=== PATIENT | female | born 1970 | race Caucasian/White ===

== ENCOUNTER 2018-11-20 18:37 | Observation (INO) ==
[2018-11-20] MEDS ORDERED: Isovue-370 500 ML BOTTLE IVP ONE (19:00)
[2018-11-20] MEDS ORDERED: 0.9 % Sodium Chloride 1,000 ML IVC ONE (19:05)
[2018-11-20 19:14] LABS: Bilirubin,Urine Negative (Negative); Blood,Urine Negative (Negative); Clarity,Urine Clear (Clear); Color,Urine Yellow (Yellow); Glucose,Urine (UA) Normal (Normal); Ketones,Urine Negative (Negative); Leukocyte Esterase,Urine Negative (Negative); Nitrite,Urine Negative (Negative); Protein,Urine Negative (Neg-Trace); Specific Gravity,Urine 1.015 (1.010-1.025); Urobilinogen,Urine Normal (Normal)
[2018-11-20 19:36] LABS: Basophils # 0.1 K/mcL (0.0-0.2); Basophils % 0.6 %; Eosinophils # 0.5 K/mcL (0.0-0.6); Eosinophils % 4.5 %; Hemoglobin 12.3 g/dL (11.5-15.4); Immature Granulocytes % 0.6 % (0-4); Lymphocytes # 2.6 K/mcL (0.6-4.6); Lymphocytes % 24.9 %; Mean Corpuscular HGB Conc 32.4 g/dL (31.6-35.5); Mean Corpuscular Hemoglobin 28.6 pg (28.0-33.3); Mean Corpuscular Volume 88.4 fL (83.0-100.0); Mean Platelet Volume 9.9 fL (9.4-12.4); Monocytes # 1.7 K/mcL (0.0-1.3); Monocytes % 16.1 %; Neutrophils # 5.5 K/mcL (1.6-8.9); Platelet Count 402 K/mcL (140-400); Segmented Neutrophils % 53.3 %
[2018-11-20 19:47] LABS: Prothrombin Time 11.8 Seconds (9.4-12.1)
[2018-11-20 19:51] LABS: Alanine Aminotransferase 33 Units/L (7-52); Albumin 3.8 g/dL (3.5-5.7); Albumin/Globulin Ratio 1.2 (1.1-2.2); Alkaline Phosphatase 86 Units/L (34-104); Aspartate Amino Transferase 23 Units/L (13-39); BUN/Creatinine Ratio 12 (6-26); Bilirubin,Indirect 0.4 mg/dL (0.0-1.2); Bilirubin,Total 0.4 mg/dL (0.3-1.0); Blood Urea Nitrogen 11 mg/dL (6-20); Calcium 9.8 mg/dL (8.6-10.3); Carbon Dioxide 25 mEq/L (23-29); Chloride 101 mEq/L (98-107); Globulin 3.1 g/dL (2.4-3.5); Glucose 121 mg/dL (70-105); Osmolality,Calculated 279 (280-300); Potassium 3.5 mEq/L (3.5-5.1); Sodium 134 mEq/L (136-145); Total Protein 6.9 g/dL (6.4-8.9); eGFR For Non-African Americans > 60 (> 60)
--- NOTE | 2018-11-20 20:16 | Emergency Department Note ---
Disposition Clinical Impression: Lower GI bleed, Colitis Disposition: Admitted As Inpatient General Adult HPI - General Chief complaint: ED GI Bleed Stated complaint: Bloody Stool/Diarrhea x 2 weeks Time Seen by Provider: 11/20/18 18:44 Source: patient, family Mode of arrival: private vehicle Limitations: no limitations Nursing Notes Reviewed: Yes Vital Signs Reviewed: Yes - History of Present Illness HPI Narrative: 48-year-old female presents for chief complaint of abdominal pain which is crampy and diffuse and constant with associated watery diarrhea for the last 2 weeks. This is in the context of taking levofloxacin for a sinus infection about a month ago. No travel. No sick contacts. No history of similar symptoms. She denies any fevers, headache or confusion, chest pain shortness of breath. She has nausea and poor appetite without vomiting. No changes in urination. No rashes or edema. Patient notes that over the last week she has noticed blood mixed in with her stool and called her doctor today for the same who recommended she come in for evaluation. She denies any syncope or presyncope, chest pain or shortness of breath. No remitting or exacerbating factors. Pain Scale: 6 - Related Data Home Medications Medication Instructions Recorded Confirmed Citalopram [CeleXA] 40 mg PO DAILY 07/28/16 07/28/16 Lansoprazole [Prevacid] 15 mg PO 07/28/16 Levonorgestrel-Ethin Estradiol 07/28/16 [Lutera-28 Tablet] Nebivolol [Bystolic] 5 mg PO DAILY 07/28/16 07/28/16 Previous Rx's Medication Instructions Recorded GuaiFENesin ER [Mucinex] 600 mg PO BID PRN #9 tab 07/28/16 Phenazopyridine HCl [Pyridium] 200 mg PO TID #6 tab 07/28/16 cephALEXin [Keflex] 500 mg PO QID #40 capsule 07/28/16 Allergies Allergy/AdvReac Type Severity Reaction Status Date / Time No Known Allergies Allergy Unverified 07/28/16 18:22 Constitutional: Denies: fever, chills Eyes: Denies: eye discharge, vision change ENT ED: Denies: epistaxis, dysphagia Cardiovascular: Denies: chest pain, palpitations Respiratory: Denies: cough, dyspnea Gastrointestinal: Reports: abdominal pain, nausea Genitourinary: Denies: urgency, dysuria Musculoskeletal: Denies: back pain, neck pain Integumentary: Denies: rash, lesions Neurological: Denies: headache, weakness Psychiatric: Reports: as per HPI Endocrine: Denies: fatigue, heat or cold intolerance Hematological/Lymphatic: Denies: easy bleeding, easy bruising Past Medical History - Past Medical History Medical history: Reports: GERD, hyperlipidemia, hypertension Psychiatric history: Reports: anxiety, depression - Social History Smoking Status: Never smoker Smokeless Tobacco Status: No Alcohol use: Reports: occasionally Drug use: Reports: none Physical Exam - General Limitations: no limitations General appearance: alert, in no apparent distress - Head Head exam: atraumatic, normocephalic - Eye Eye exam: Present: normal appearance, PERRL - ENT ENT exam: normal exam, normal oropharynx - Neck Neck exam: Present: normal inspection, full ROM - Chest Chest inspection: Present: normal inspection, symmetric chest wall rise - Respiratory Respiratory exam: Present: normal lung sounds bilaterally. 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 ) - Extremities Exam Extremities exam: Present: normal inspection, full ROM. Absent: pedal edema - Back Exam Back exam: Present: normal inspection, full ROM - Neurological Exam Neurological exam: Present: alert, oriented X3 - Psychiatric Psychiatric exam: Present: normal affect, normal mood - Skin Skin exam: Present: warm, dry, intact Course Course Narrative: Patient with watery, blood-tinged diarrhea in the emergency department. CT scan was notable for pancolitis. Patient without anemia in the emergency department. I gave her Flagyl in the emergency department. Concern for C. difficile is high so hospitalist requested that I add vancomycin oral. Patient admitted for further evaluation and management. Vital Signs Temperature 98.1 F 11/20/18 18:38 Pulse Rate 98 11/20/18 18:38 Respiratory Rate 18 11/20/18 18:38 Blood Pressure 144/90 11/20/18 18:38 O2 Sat by Pulse Oximetry 96 11/20/18 18:38 Temperature 98.1 F 11/20/18 18:38 Pulse Rate 99 11/20/18 21:46 Respiratory Rate 16 11/20/18 21:46 Blood Pressure 116/73 11/20/18 21:46 O2 Sat by Pulse Oximetry 99 11/20/18 21:46 Oxygen Delivery Oxygen Delivery Room Air Medical Decision Making - Lab Data Result diagrams: 11/20/18 19:13 11/20/18 19:13 Lab Results 11/20/18 11/20/18 11/20/18 Range/Units 19:02 19:13 19:13 WBC 10.3 (4.3-11.1) K/mcL RBC 4.30 (3.82-4.97) M/mcL Hgb 12.3 (11.5-15.4) g/dL Hct 38.0 (35.3-44.9) % MCV 88.4 (83.0-100.0) fL MCH 28.6 (28.0-33.3) pg MCHC 32.4 (31.6-35.5) g/dL RDW 12.0 (11.5-14.5) % Plt Count 402 H (140-400) K/mcL MPV 9.9 (9.4-12.4) fL Immature Gran % 0.6 (0-4) % Seg Neutrophils % 53.3 % Lymphocytes % 24.9 % Monocytes % 16.1 % Eosinophils % 4.5 % Basophils % 0.6 % Neutrophils # 5.5 (1.6-8.9) K/mcL Lymphocytes # 2.6 (0.6-4.6) K/mcL Monocytes # 1.7 H (0.0-1.3) K/mcL Eosinophils # 0.5 (0.0-0.6) K/mcL Basophils # 0.1 (0.0-0.2) K/mcL PT 11.8 (9.4-12.1) Seconds INR 1.0 Sodium (136-145) mEq/L Potassium (3.5-5.1) mEq/L Chloride (98-107) mEq/L Carbon Dioxide (23-29) mEq/L BUN (6-20) mg/dL Creatinine (0.60-1.20) mg/dL Est GFR ( Amer) (> 60) Est GFR (Non-Af Amer) (> 60) BUN/Creatinine Ratio (6-26) Glucose (70-105) mg/dL Calculated Osmolality (280-300) Calcium (8.6-10.3) mg/dL Total Bilirubin (0.3-1.0) mg/dL Direct Bilirubin (0.0-0.2) mg/dL Indirect Bilirubin (0.0-1.2) mg/dL AST (13-39) Units/L ALT (7-52) Units/L Alkaline Phosphatase (34-104) Units/L Serum Total Protein (6.4-8.9) g/dL Albumin (3.5-5.7) g/dL Globulin (2.4-3.5) g/dL Albumin/Globulin Ratio (1.1-2.2) Urine Color Yellow (Yellow) Urine Clarity Clear (Clear) Urine pH 6.0 (5.0-8.0) pH Units Ur Specific [place] 1.015 (1.010-1.025) Urine Protein Negative (Neg-Trace) mg/dL Urine Glucose (UA) Normal (Normal) mg/dL Urine Ketones Negative (Negative) mg/dL Urine Blood Negative (Negative) Urine Nitrite Negative (Negative) Urine Bilirubin Negative (Negative) Urine Urobilinogen Normal (Normal) mg/dL Ur Leukocyte Esterase Negative (Negative) Ur Culture Indicated? NO (NO) Stl C. diff Tox B Gene (Negative) 11/20/18 11/20/18 Range/Units 19:13 20:29 WBC (4.3-11.1) K/mcL RBC (3.82-4.97) M/mcL Hgb (11.5-15.4) g/dL Hct (35.3-44.9) % MCV (83.0-100.0) fL MCH (28.0-33.3) pg MCHC (31.6-35.5) g/dL RDW (11.5-14.5) % Plt Count (140-400) K/mcL MPV (9.4-12.4) fL Immature Gran % (0-4) % Seg Neutrophils % % Lymphocytes % % Monocytes % % Eosinophils % % Basophils % % Neutrophils # (1.6-8.9) K/mcL Lymphocytes # (0.6-4.6) K/mcL Monocytes # (0.0-1.3) K/mcL Eosinophils # (0.0-0.6) K/mcL Basophils # (0.0-0.2) K/mcL PT (9.4-12.1) Seconds INR Sodium 134 L (136-145) mEq/L Potassium 3.5 (3.5-5.1) mEq/L Chloride 101 (98-107) mEq/L Carbon Dioxide 25 (23-29) mEq/L BUN 11 (6-20) mg/dL Creatinine 0.89 (0.60-1.20) mg/dL Est GFR ( Amer) > 60 (> 60) Est GFR (Non-Af Amer) > 60 (> 60) BUN/Creatinine Ratio 12 (6-26) Glucose 121 H (70-105) mg/dL Calculated Osmolality 279 L (280-300) Calcium 9.8 (8.6-10.3) mg/dL Total Bilirubin 0.4 (0.3-1.0) mg/dL Direct Bilirubin 0.0 (0.0-0.2) mg/dL Indirect Bilirubin 0.4 (0.0-1.2) mg/dL AST 23 (13-39) Units/L ALT 33 (7-52) Units/L Alkaline Phosphatase 86 (34-104) Units/L Serum Total Protein 6.9 (6.4-8.9) g/dL Albumin 3.8 (3.5-5.7) g/dL Globulin 3.1 (2.4-3.5) g/dL Albumin/Globulin Ratio 1.2 (1.1-2.2) Urine Color (Yellow) Urine Clarity (Clear) Urine pH (5.0-8.0) pH Units Ur Specific [place] (1.010-1.025) Urine Protein (Neg-Trace) mg/dL Urine Glucose (UA) (Normal) mg/dL Urine Ketones (Negative) mg/dL Urine Blood (Negative) Urine Nitrite (Negative) Urine Bilirubin (Negative) Urine Urobilinogen (Normal) mg/dL Ur Leukocyte Esterase (Negative) Ur Culture Indicated? (NO) Stl C. diff Tox B Gene Negative (Negative)
[2018-11-20] MEDS ORDERED: MetroNIDAZOLE 500 MG/100 ML 500 MG/100 ML BAG IVPB ONE (20:56)
[2018-11-20] MEDS ORDERED: Vancomycin Oral Soln 125 MG/2.5 ML UDC PO SCH (22:00)
[2018-11-20] MEDS ORDERED: Naloxone 0.4 MG/ML INJ IVP PRN (23:12)
--- NOTE | 2018-11-20 23:14 | Internal Med History&Physical ---
<Markel Metzger S - Last Filed: 11/20/18 23:48> Date of Encounter: 11/20/18 Time of Encounter: 23:48 Internal Medicine - H&P: HPI Chief complaint: abdominal pain, bloody diarrhea Admitted From: Emergency Dept Plans for Post Hospital Care: Home History of present illness: Ms. Rivas is a 48 year old female with PMH of HTN, GERD and obesity. She comes to the hospital today with the chief complaint of bloody diarrhea. She has had increasing bloody diarrhea x 2-3 weeks. She also has cramping abdominal pain th at is in the LLQ/RLQ w/o radiation. She has associated nausea, no vomiting. She reports that anytime she eats she has 2-3 bloody BM no matter what she eats. She denies fecal urgency at nighttime. She states that she has had previous episodes of this before and her doctor has given her sulfasalazine in the past. She denies a personal or fam hx of IBD or CRC. She denies any weight loss, new rashes, or skin changes. Does have some fevers/chills. She recently was given levaquin for sinusitis as an outpatient but had abdominal symptoms previous to this medication being given. She denies chest pain, SOB, dysuria, hematuria, or other sources of bleeding. She feels some weakness but denies episodes of presyncope or syncope. Nothing has made her s/s better or worse, other than food. She does use NSAIDs multiple times per day. In the ER she was found to have an elevated platelet count. CT scan showed pancolitis, possible rectal mass and pathologic pericecal lymphadenopathy. She will be admitted for further evaluation and workup. GI consult has been placed. Past Med Surg Social Fam HX - Past Medical History Medical history: GERD, hyperlipidemia, hypertension Additional medical history: GI Bleed Psychiatric history: anxiety, depression - Past Surgical History Additional surgical history: Exploratory Abdomen - Social History Smoking Status: Never smoker Smokeless Tobacco Status: No Alcohol use: occasionally Drug use: none Internal Medicine - H&P: Meds Citalopram [CeleXA] 40 mg PO DAILY 07/28/16 [History] Lansoprazole [Prevacid] 30 mg PO HS 07/28/16 [History] Bisoprolol/HCTZ 04/15.25 1 mg PO DAILY 11/21/18 [History] Fenofibrate Nanocrystallized [Fenofibrate] 160 mg PO HS 11/21/18 [History] L.acid/L.casei/B.bif/B.andres/Fos [Probiotic Blend Capsule] 1 each PO DAILY 11/21/18 [History] Levonorgestrel-Ethin Estradiol [Vienva-28 Tablet] 1 each PO HS 11/21/18 [History] Loratadine [Allergy Relief] 10 mg PO HS 11/21/18 [History] Vistaril 25 mg PO Q8HR PRN 11/21/18 [History] Allergy/AdvReac Type Severity Reaction Status Date / Time No Known Allergies Allergy Unverified 07/28/16 18:22 All Systems PM: A 10-system review of systems was performed and is negative for pertinent findings except as documented above in the HPI. - Constitutional Constitutional: chills, fever(s), weakness, no anorexia, no weight loss - EENT Eyes: no blurry vision, no change in vision Ears: no tinnitus Nose, mouth and throat: no dysphagia - Cardiovascular Cardiovascular ROS IM: no chest pain, no dyspnea, no dyspnea on exertion, no palpitations - Respiratory Respiratory: no cough, no dyspnea, no dyspnea on exertion, no excessive phlegm production, no change in phlegm color - Gastrointestinal Gastrointestinal: abdominal pain, diarrhea, hematochezia, loose stools, nausea, no dysphagia, no hematemesis, no vomiting - Musculoskeletal Musculoskeletal ROS IM: no arthralgias, no back pain - Integumentary Integumentary IM: no rash, no skin ulcer - Neurological Neurological ROS: weakness, no numbness, no tingling - Psychiatric Psychiatric: anxiety, depression - Endocrine Endocrine IM: fatigue - Hematologic/Lymphatic Hematologic/Lymphatic: no easy bleeding, no easy bruising - Constitutional Vitals: Temp Pulse Resp BP Pulse Ox 98.1 F 99 16 116/73 99 11/20/18 18:38 11/20/18 21:46 11/20/18 21:46 11/20/18 21:46 11/20/18 21:46 General appearance: Present: cooperative, A&O X 3, morbidly obese, pleasant Exam: General - AOx3, NAD, cooperative, obese female HEENT - MMM, NCAT, no scleral icterus Neck - no LAD palpated, supple, trachea midline Cardio - tacycardia, s1s2, cta, no mrg lungs - CTAB, not in respiratory distress, no wheeze/rhonchi/rales abd - TTP in LLQ/RLQ, no rebound, no involuntary or voluntary guarding, no peritoneal signs back - no bruising, no tenderness bilaterally skin - warm, dry, intact, tattoo of the right shoulder psych - normal affect/mood neuro - sensation intact, strength intact, no FND Internal Med - H&P Results - Labs CBC & Chem 7: 11/20/18 19:13 11/20/18 19:13 Labs: Short CBC 11/20/18 Range/Units 19:13 WBC 10.3 (4.3-11.1) K/mcL Hgb 12.3 (11.5-15.4) g/dL Hct 38.0 (35.3-44.9) % Plt Count 402 H (140-400) K/mcL Neutrophils # 5.5 (1.6-8.9) K/mcL BMP 11/20/18 19:13 Sodium 134 L Potassium 3.5 Chloride 101 Carbon Dioxide 25 BUN 11 Creatinine 0.89 Glucose 121 H Calcium 9.8 Liver Function 11/20/18 Range/Units 19:13 Total Bilirubin 0.4 (0.3-1.0) mg/dL Direct Bilirubin 0.0 (0.0-0.2) mg/dL AST 23 (13-39) Units/L ALT 33 (7-52) Units/L Alkaline Phosphatase 86 (34-104) Units/L Albumin 3.8 (3.5-5.7) g/dL Urine 11/20/18 Range/Units 19:02 Urine Color Yellow (Yellow) Urine Clarity Clear (Clear) Urine pH 6.0 (5.0-8.0) pH Units Ur Specific [place] 1.015 (1.010-1.025) Urine Protein Negative (Neg-Trace) mg/dL Urine Glucose (UA) Normal (Normal) mg/dL - Impressions ITS Impressions Abdomen/Pelvis CT 11/20/18 18:59 IMPRESSION: Acute nonspecific pancolitis. Possible rectal mass. Pathologic pericecal lymphadenopathy. Differential considerations include infectious, inflammatory, and neoplastic etiologies. GI consult and colonoscopy recommended. D/ / Khalif Walker MD / Khalif Walker MD Interpreting Provider: Khalif Walker MD - Assessment and Plan (1) Colitis Current Visit: Yes Status: Acute Assessment and plan: Pt presents with a 2 week hx of increasing abdominal pain, cramping, and bloody diarrhea - reports 2-3 BM mixed with blood after every meal - denies personal hx of cancer, fam hx of CRC - denies weight loss - has had ~3 prior episodes reportedly put on sulfasalazine by PCP during last episode denies personal/family hx of IBD Denies contact w sick persons/travel outside [place] Was recently on levaquin, however, denies other recent abx use Bloody diarrhea assoc with mealtimes Does report using NSAIDS very frequently C dif stool (-) CT scan abd from admission: Acute nonspecific pancolitis. Possible rectal mass. Pathologic pericecal lymphadenopathy. Differential considerations include infectious, inflammatory, and neoplastic etiologies Plan: - consult to GI will likely need inpt colonoscopy ?rectal mass - ESR/CRP pending - cipro/flagyl day 1 (timed to start at midnight) - GI stool panel pending - avoid NSAIDs - zofran prn nausea - 100cc/hr 0.9% NS - monitor CBC/BMP with AM labs - FEN: NPO - DVT prophylaxis: sq heparin - consults: GI - dispo: inpatient GI workup, r/o underlying malignancy (2) Rectal mass Current Visit: Yes Status: Acute Assessment and plan: Possible rectal mass with pathologic pericecal LAD seen on CT on admission GI consulted. See plan as above. (3) Abdominal pain Current Visit: Yes Status: Acute Assessment and plan: Secondary to colitis. See plan above. Qualifiers: Abdominal location: generalized Qualified Code(s): R10.84 - Generalized abdominal pain (4) Nausea Current Visit: Yes Status: Acute Assessment and plan: zofran prn (5) Hypertension Current Visit: No Status: Chronic Assessment and plan: Continue home med once reconciled. Chronic. On nebivolol. Qualifiers: Hypertension type: essential hypertension Qualified Code(s): I10 - Essential (primary) hypertension (6) Obesity Current Visit: No Status: Chronic Assessment and plan: BMI 45.5, chronic. Qualifiers: Obesity type: due to excess calories Obesity classification: adult class 3 (BMI >= 40) Serious obesity comorbidity presence: without serious comorbidity Body mass index: BMI 45.0-49.9 Qualified Code(s): E66.01 - Morbid (severe) obesity due to excess calories; Z68.42 - Body mass index (BMI) 45.0-49.9, adult (7) DVT prophylaxis Current Visit: Yes Status: Acute Assessment and plan: sq heparin (8) GERD (gastroesophageal reflux disease) Current Visit: No Status: Chronic Assessment and plan: on prevacid. chronic. Qualifiers: Esophagitis presence: esophagitis presence not specified Qualified Code(s): K21.9 - Gastro-esophageal reflux disease without esophagitis (9) Anxiety Current Visit: No Status: Chronic Assessment and plan: continue celexa. chronic. (10) Seasonal allergies Current Visit: No Status: Chronic Assessment and plan: chronic, continue mucinex. (11) Thrombocythemia Current Visit: Yes Status: Acute Assessment and plan: Likely reactive, platelets 402 on admission, continue to monitor. - Time Spent With Patient Total time spent is greater than 50% in coordination of care (as documented) at patient's floor/unit and/or counseling patient: less than 15 minutes <Mu Lindsey - Last Filed: 11/21/18 07:30> Date of Encounter: 11/20/18 Internal Medicine - H&P: HPI History of present illness: Ms. Rivas is a 48 year old female Past Med Surg Social Fam HX - Family History Brother Living Status: Still Living Hx Family Cancer: Yes (CLL, stem cell transplant) Father Living Status: Still Living Hx Family Cancer: Yes (myeloma) Hx Family Endocrine Disorder: Yes (diabetic) All Systems PM: A 10-system review of systems was performed and is negative for pertinent findings except as documented above in the HPI. - Constitutional Vitals: Temp Pulse Resp BP Pulse Ox 98.2 F 95 18 133/79 95 11/21/18 06:53 11/21/18 06:53 11/21/18 06:53 11/21/18 06:53 11/21/18 06:53 Internal Med - H&P Results - Labs CBC & Chem 7: 11/21/18 05:10 11/21/18 05:10 Labs: Short CBC 11/20/18 11/21/18 Range/Units 19:13 05:10 WBC 10.3 10.5 (4.3-11.1) K/mcL Hgb 12.3 11.6 (11.5-15.4) g/dL Hct 38.0 35.5 (35.3-44.9) % Plt Count 402 H 354 (140-400) K/mcL Neutrophils # 5.5 (1.6-8.9) K/mcL BMP 11/20/18 11/21/18 19:13 05:10 Sodium 134 L 136 Potassium 3.5 3.8 Chloride 101 105 Carbon Dioxide 25 22 L BUN 11 8 Creatinine 0.89 0.70 Glucose 121 H 124 H Calcium 9.8 9.2 Liver Function 11/20/18 Range/Units 19:13 Total Bilirubin 0.4 (0.3-1.0) mg/dL Direct Bilirubin 0.0 (0.0-0.2) mg/dL AST 23 (13-39) Units/L ALT 33 (7-52) Units/L Alkaline Phosphatase 86 (34-104) Units/L Albumin 3.8 (3.5-5.7) g/dL Urine 11/20/18 Range/Units 19:02 Urine Color Yellow (Yellow) Urine Clarity Clear (Clear) Urine pH 6.0 (5.0-8.0) pH Units Ur Specific [place] 1.015 (1.010-1.025) Urine Protein Negative (Neg-Trace) mg/dL Urine Glucose (UA) Normal (Normal) mg/dL - Impressions ITS Impressions Abdomen/Pelvis CT 11/20/18 18:59 IMPRESSION: Acute nonspecific pancolitis. Possible rectal mass. Pathologic pericecal lymphadenopathy. Differential considerations include infectious, inflammatory, and neoplastic etiologies. GI consult and colonoscopy recommended. D/ / Khalif Walker MD / Khalif Walker MD Interpreting Provider: Khalif Walker MD - Assessment and Plan (1) Colitis Current Visit: Yes Status: Acute (2) Rectal mass Current Visit: Yes Status: Acute (3) Abdominal pain Current Visit: Yes Status: Acute Qualifiers: Abdominal location: generalized Qualified Code(s): R10.84 - Generalized abdominal pain (4) Nausea Current Visit: Yes Status: Acute (5) Hypertension Current Visit: No Status: Chronic Qualifiers: Hypertension type: essential hypertension Qualified Code(s): I10 - Essential (primary) hypertension (6) Obesity Current Visit: No Status: Chronic Qualifiers: Obesity type: due to excess calories Obesity classification: adult class 3 (BMI >= 40) Serious obesity comorbidity presence: without serious comorbidity Body mass index: BMI 45.0-49.9 Qualified Code(s): E66.01 - Morbid (severe) obesity due to excess calories; Z68.42 - Body mass index (BMI) 45.0-49.9, adult (7) DVT prophylaxis Current Visit: Yes Status: Acute (8) GERD (gastroesophageal reflux disease) Current Visit: No Status: Chronic Qualifiers: Esophagitis presence: esophagitis presence not specified Qualified Code(s): K21.9 - Gastro-esophageal reflux disease without esophagitis (9) Anxiety Current Visit: No Status: Chronic (10) Seasonal allergies Current Visit: No Status: Chronic (11) Thrombocythemia Current Visit: Yes Status: Acute - Time Spent With Patient Total time spent is greater than 50% in coordination of care (as documented) at patient's floor/unit and/or counseling patient: - Attending Attestation On the history and physical examination of the patient and discussed her management with the resident. I reviewed the resident's note and agree with the documented plan of care. In short patient is a 48-year-old female with a past medical history of hypertension and GERD who presents with 2-3 weeks of intermittent bloody diarrhea associated with abdominal pain and cramping after meals. Patient reports previously being on sulfasalazine by her GI doctor but was never formally diagnosed with any inflammatory bowel disease. Patient otherwise hemodynamically stable. Hemoglobin stable. We will admit for inflammatory bowel disease workup. GI consult.
[2018-11-20] MEDS ORDERED: *HR* Heparin 5,000 UNIT/ML VIAL SQ SCH (23:15)
[2018-11-21] LABS: C-Reactive Protein 120 mg/L (Less than 10); Magnesium 1.7 mg/dL (1.6-2.6)
[2018-11-21] MEDS ORDERED: Ondansetron 4 MG/2 ML VIAL IVP PRN (00:05)
[2018-11-21] MEDS: MetroNIDAZOLE 500 MG/100 ML 500 MG/100 ML BAG IVPB SCH ×3 (00:39→16:13)
[2018-11-21] MEDS: 0.9 % Sodium Chloride 1,000 ML IVC SCH ×2 (00:47→16:16)
[2018-11-21] MEDS ORDERED: hydrOXYzine pamoate 25 MG CAPSULE PO PRN (01:19)
[2018-11-21 04:58] LABS: Adenovirus F 40/41 PCR Not detected (Not detect); Astrovirus PCR Not detected (Not detect); C.difficile Toxin A/B Gene PCR Not detected (Not detect); Campylobacter by PCR Not detected (Not detect); Cryptosporidium by PCR Not detected (Not detect); Cyclospora cayetanensis PCR Not detected (Not detect); E. coli O157 by PCR Not detected (Not detect); Entamoeba histolytica PCR Not detected (Not detect); Enteroaggregative E.coli(EAEC) Not detected (Not detect); Enteropathogenic E.coli(EPEC) Not detected (Not detect); Enterotoxigenic E.coli (ETEC) Not detected (Not detect); Giardia lamblia PCR Not detected (Not detect); Norovirus GI/GII PCR Not detected (Not detect); Plesiomonas shigelloides PCR Not detected (Not detect); Rotavirus A PCR Not detected (Not detect); Salmonella PCR Not detected (Not detect); Sapovirus PCR Not detected (Not detect); Shig/EnteroinvasiveE coli EIEC Not detected (Not detect); Shigalike tox-prod E coli STEC Not detected (Not detect); Vibrio PCR Not detected (Not detect); Vibrio cholerae PCR Not detected (Not detect); Yersinia enterocolitica PCR Not detected (Not detect)
[2018-11-21 05:24] LABS: Hematocrit 35.5 % (35.3-44.9); Hemoglobin 11.6 g/dL (11.5-15.4); Mean Corpuscular HGB Conc 32.7 g/dL (31.6-35.5); Mean Corpuscular Hemoglobin 28.6 pg (28.0-33.3); Mean Corpuscular Volume 87.7 fL (83.0-100.0); Mean Platelet Volume 9.7 fL (9.4-12.4); Platelet Count 354 K/mcL (140-400); Red Blood Count 4.05 M/mcL (3.82-4.97); Red Cell Distribution Width 11.9 % (11.5-14.5)
[2018-11-21 05:44] LABS: BUN/Creatinine Ratio 11 (6-26); Blood Urea Nitrogen 8 mg/dL (6-20); Calcium 9.2 mg/dL (8.6-10.3); Carbon Dioxide 22 mEq/L (23-29); Chloride 105 mEq/L (98-107); Glucose 124 mg/dL (70-105); Osmolality,Calculated 282 (280-300); Potassium 3.8 mEq/L (3.5-5.1); Sodium 136 mEq/L (136-145); eGFR For Non-African Americans > 60 (> 60)
[2018-11-21] MEDS ORDERED: HYDROCHLOROTHIAZIDE PO SCH (09:00)
[2018-11-21] MEDS ORDERED: BISOPROLOL PO SCH (09:00)
--- NOTE | 2018-11-21 12:26 | Gastroenterology Consult Note ---
<Cristobal Johnson Melissa - Last Filed: 11/21/18 12:23> Date of Encounter: 11/21/18 Time of Encounter: 10:00 - Assessment and plan (1) Colitis Current Visit: Yes Status: Acute Assessment and plan: CT A/P shows nonspecific pancolitis, possible rectal mass, pathologic pericecal lymphadenopathy. GI panel stool testing negative. Continue Cipro and Flagyl. Plan for colonoscopy tomorrow. Clear liquid diet today, no red or purple. NPO at midnight. If unable tolerate NuLytely please use MiraLAX prep. If not clear by 6 AM, give 2 tap water enemas. (2) Rectal mass Current Visit: Yes Status: Acute Assessment and plan: CT A/P shows nonspecific pancolitis, possible rectal mass, pathologic pericecal lymphadenopathy. Plan for colonoscopy tomorrow. Clear liquid diet today, no red or purple. NPO at midnight. If unable tolerate NuLytely please use MiraLAX prep. If not clear by 6 AM, give 2 tap water enemas. (3) Lower GI bleed Current Visit: Yes Status: Acute Assessment and plan: Likely secondary to colitis. Plan for colonoscopy tomorrow. Clear liquid diet today, no red or purple. NPO at midnight. If unable tolerate NuLytely please use MiraLAX prep. If not clear by 6 AM, give 2 tap water enemas. (4) Abdominal pain Current Visit: Yes Status: Acute Assessment and plan: Secondary to colitis. Qualifiers: Abdominal location: generalized Qualified Code(s): R10.84 - Generalized abdominal pain - Time Spent With Patient Total time spent is greater than 50% in coordination of care (as documented) at patient's floor/unit and/or counseling patient: GI History of Present Illness - Data of Consult Patient: new to practice Consult date: 11/21/18 Requesting Physician: Mu Lindsey MD - Consult Narrative Reason for consult: Colitis, possible rectal mass History of present illness: Ms. Rivas is a 48 year old female with PMHx of GERD, HLD, HTN who presented to the ED with bloody diarrhea that has been ongoing for the past 2-3 weeks. She reports having symptoms similar to this in the past was treated with sulfasalazine by her PCP. CT A/P shows nonspecific pancolitis, possible rectal mass, pathologic pericecal lymphadenopathy. Hgb 12.3 on admission and today Hgb 11.6. GI panel completed and was negative. She denies any personal or family history of IBD or colon cancer. Procedures: Colonoscopy 11/13/2010 Dr. Ann: Diverticulosis, external and internal hemorrhoids, chronic active colitis suspicious for ulcerative colitis, pathology with crypt abscesses without granulomas. EGD 11/13/2010 Dr. Ann: Gastritis. NSAIDs: None Anticoagulation: None Past Med Surg Social Fam HX - Past Medical History Medical history: GERD, hyperlipidemia, hypertension Additional medical history: GI Bleed Psychiatric history: anxiety, depression - Past Surgical History Surgical History: cholecystectomy Additional surgical history: Exploratory Abdomen - Social History Smoking Status: Former smoker Smokeless Tobacco Status: No Alcohol use: occasionally Drug use: none - Family History Brother Living Status: Still Living Hx Family Cancer: Yes (CLL, stem cell transplant) Father Living Status: Still Living Hx Family Cancer: Yes (myeloma) Hx Family Endocrine Disorder: Yes (diabetic) - Gastrointestinal Gastrointestinal: Present: as per HPI - Constitutional Constitutional: as per HPI - EENT Eyes: as per HPI Ears: Present: as per HPI Nose, mouth and throat: Present: as per HPI - Cardiovascular Cardiovascular ROS: Present: as per HPI - Respiratory Respiratory IM: Present: as per HPI - Genitourinary Genitourinary: Absent: change in color, Urinary frequency - Neurological ROS Neurological GI: Present: as per HPI - Hematologic/Lymphatic Hematologic/Lymphatic pediatric: Present: as per HPI - Musculoskeletal Musculoskeletal ROS GI: Present: as per HPI - Integumentary Integumentary GI: Present: as per HPI - Psychiatric ROS Psychiatric GI: Present: as per HPI - Endocrine Endocrine IM: Present: as per HPI - Constitutional Vitals: Temp Pulse Resp BP Pulse Ox 97.6 F 88 18 117/78 95 11/21/18 10:47 11/21/18 10:47 11/21/18 10:47 11/21/18 10:47 11/21/18 10:47 General appearance: Present: cooperative, A&O X 3, no acute distress, answers questions appropriately - Head Head exam: Present: atraumatic, normocephalic - Eye Eye exam: Present: normal appearance, sclera anicteric - ENT ENT exam: Present: mucous membranes moist - Neck Neck exam general surgery: Present: normal inspection, trachea midline - Respiratory Respiratory exam: Present: CTAB. Absent: rales, rhonchi, wheezes - Cardiovascular Cardiovascular exam: Present: RRR, +S1, +S2 - GI/Abdominal GI/Abdominal exam: Present: normal bowel sounds, soft, tenderness (Mild lower abdominal tenderness), no peritoneal signs. Absent: distended, firm, guarding - Rectal Rectal exam: Present: deferred - Extremities Exam Extremities exam: Present: warm - Neurological Exam Neurological exam: Present: no focal deficits - Psychiatric Psychiatric exam: Present: normal affect, normal mood - Skin Skin exam: Present: dry, intact, normal color, warm Results - Labs CBC & Chem 7: 11/21/18 05:10 11/21/18 05:10 Labs: Last Result 11/21/18 05:10 Calcium 9.2 Entire Visit 11/21/18 05:10 Hgb 11.6 Hct 35.5 - ABG ABG results: PT/INR, D-dimer PT 11.8 Seconds (9.4-12.1) 11/20/18 19:13 - Impressions Impressions Abdomen/Pelvis CT 11/20/18 18:59 IMPRESSION: Acute nonspecific pancolitis. Possible rectal mass. Pathologic pericecal lymphadenopathy. Differential considerations include infectious, inflammatory, and neoplastic etiologies. GI consult and colonoscopy recommended. D/ / Khalif Walker MD / Khalif Walker MD Interpreting Provider: Khalif Walker MD Consult Discharge Plan - Plan Referrals: Farhana Reardon, PODIATRIC AIDE [Primary Care Provider] - <Aron Littlejohn - Last Filed: 11/21/18 14:47> Date of Encounter: 11/21/18 Time of Encounter: 13:00 - Time Spent With Patient Total time spent is greater than 50% in coordination of care (as documented) at patient's floor/unit and/or counseling patient: GI History of Present Illness - Data of Consult Requesting Physician: Mu Lindsey MD - Consult Narrative History of present illness: Ms. Rivas is a 48 year old female - Constitutional Vitals: Temp Pulse Resp BP Pulse Ox 97.6 F 88 18 117/78 95 11/21/18 10:47 11/21/18 10:47 11/21/18 10:47 11/21/18 10:47 11/21/18 10:47 Results - Labs CBC & Chem 7: 11/21/18 05:10 11/21/18 05:10 Labs: Last Result 11/21/18 05:10 Calcium 9.2 Entire Visit 11/21/18 05:10 Hgb 11.6 Hct 35.5 - ABG ABG results: PT/INR, D-dimer PT 11.8 Seconds (9.4-12.1) 11/20/18 19:13 - Impressions Impressions Abdomen/Pelvis CT 11/20/18 18:59 IMPRESSION: Acute nonspecific pancolitis. Possible rectal mass. Pathologic pericecal lymphadenopathy. Differential considerations include infectious, inflammatory, and neoplastic etiologies. GI consult and colonoscopy recommended. D/ / Khalif Walker MD / Khalif Walker MD Interpreting Provider: Khalif Walker MD - Attending Attestation I have personally performed a face to face evaluation on this patient. I have reviewed and agree with the care plan. History and Exam by me shows: patient seen. complaining of rectal and bleeding for 2 weeks. On examination: Abdomen is benign.. Assessment: Patient with rectal bleeding concerning for colitis/rectal mass. Rec: : Colon In the morning
[2018-11-21] MEDS: *HR* Heparin 5,000 UNIT/ML VIAL SQ SCH (12:46)
[2018-11-21] MEDS: Bisoprolol/HCTZ 10/6.25 TABLET PO SCH (12:46)
--- NOTE | 2018-11-21 13:20 | Internal Med Progress Note ---
Hospitalist Progress Note - Encounter Date of Encounter: 11/21/18 Time of Encounter: 09:00 - Subjective Interval History: Patient feels abdominal pain has improved. Still has diarrhea, has improved. Vitals are stable. Patient is in no acute distress. - Exam Vitals: Temp Pulse Resp BP Pulse Ox 97.6 F 88 18 117/78 95 11/21/18 10:47 11/21/18 10:47 11/21/18 10:47 11/21/18 10:47 11/21/18 10:47 Exam: General - AOx3, NAD, cooperative, obese female HEENT - MMM, NCAT, no scleral icterus Neck - no LAD palpated, supple, trachea midline Cardio - tacycardia, s1s2, cta, no mrg lungs - CTAB, not in respiratory distress, no wheeze/rhonchi/rales abd - TTP in LLQ/RLQ, no rebound, no involuntary or voluntary guarding, no peritoneal signs back - no bruising, no tenderness bilaterally skin - warm, dry, intact, tattoo of the right shoulder psych - normal affect/mood neuro - sensation intact, strength intact, no FND - Assessment and Plan (1) Colitis Current Visit: Yes Status: Acute Assessment and Plan: GI consult appreciated. Continue Cipro and Flagyl IV -Clear liquid diet - Plan for colonoscopy tomorrow (2) Rectal mass Current Visit: Yes Status: Acute Assessment and Plan: Possible rectal mass with pathologic pericecal LAD seen on CT on admission GI consulted. Plan for colonoscopy tomorrow (3) Abdominal pain Current Visit: Yes Status: Acute Assessment and Plan: Most likely secondary to colitis. Improved after treatment with Cipro and Flagyl. (4) Nausea Current Visit: Yes Status: Acute Assessment and Plan: Improved. Continue zofran prn (5) Hypertension Current Visit: No Status: Chronic Assessment and Plan: Continue home med once reconciled. Chronic. On nebivolol. (6) Obesity Current Visit: No Status: Chronic Assessment and Plan: BMI 45.5, chronic. Lifestyle modification as outpatient (7) DVT prophylaxis Current Visit: Yes Status: Acute Assessment and Plan: sq heparin (8) GERD (gastroesophageal reflux disease) Current Visit: No Status: Chronic Assessment and Plan: on prevacid. chronic. (9) Anxiety Current Visit: No Status: Chronic Assessment and Plan: continue celexa. chronic. (10) Seasonal allergies Current Visit: No Status: Chronic Assessment and Plan: chronic, continue mucinex. (11) Thrombocythemia Current Visit: Yes Status: Acute Assessment and Plan: Likely reactive, platelets 402 on admission, continue to monitor. - Trend down now - Time Spent with Patient Total time spent is greater than 50% in coordination of care (as documented) at patient's floor/unit and/or counseling patient: 30 minutes 25 - 35 minutes Plan of Care Discussed with: patient Internal Medicine: Result - Labs CBC & Chem 7: 11/21/18 05:10 11/21/18 05:10 Labs: Short CBC 11/20/18 11/21/18 Range/Units 19:13 05:10 WBC 10.3 10.5 (4.3-11.1) K/mcL Hgb 12.3 11.6 (11.5-15.4) g/dL Hct 38.0 35.5 (35.3-44.9) % Plt Count 402 H 354 (140-400) K/mcL Neutrophils # 5.5 (1.6-8.9) K/mcL BMP 11/20/18 11/21/18 19:13 05:10 Sodium 134 L 136 Potassium 3.5 3.8 Chloride 101 105 Carbon Dioxide 25 22 L BUN 11 8 Creatinine 0.89 0.70 Glucose 121 H 124 H Calcium 9.8 9.2 Liver Function 11/20/18 Range/Units 19:13 Total Bilirubin 0.4 (0.3-1.0) mg/dL Direct Bilirubin 0.0 (0.0-0.2) mg/dL AST 23 (13-39) Units/L ALT 33 (7-52) Units/L Alkaline Phosphatase 86 (34-104) Units/L Albumin 3.8 (3.5-5.7) g/dL Urine 11/20/18 Range/Units 19:02 Urine Color Yellow (Yellow) Urine Clarity Clear (Clear) Urine pH 6.0 (5.0-8.0) pH Units Ur Specific [place] 1.015 (1.010-1.025) Urine Protein Negative (Neg-Trace) mg/dL Urine Glucose (UA) Normal (Normal) mg/dL - ABG Interpretation ABG results: PT/INR, D-dimer PT 11.8 Seconds (9.4-12.1) 11/20/18 19:13 - Impressions Impressions Abdomen/Pelvis CT 11/20/18 18:59 IMPRESSION: Acute nonspecific pancolitis. Possible rectal mass. Pathologic pericecal lymphadenopathy. Differential considerations include infectious, inflammatory, and neoplastic etiologies. GI consult and colonoscopy recommended. D/ / Khalif Walker MD / Khalif Walker MD Interpreting Provider: Khalif Walker MD Consult Discharge Plan - Plan Referrals: Farhana Reardon, CLUTCH INSPECTOR [Primary Care Provider] - _ (3) Abdominal pain Qualifiers: Abdominal location: generalized Qualified Code(s): R10.84 - Generalized abdominal pain (5) Hypertension Qualifiers: Hypertension type: essential hypertension Qualified Code(s): I10 - Essential (primary) hypertension (6) Obesity Qualifiers: Obesity type: due to excess calories Obesity classification: adult class 3 (BMI >= 40) Serious obesity comorbidity presence: without serious comorbidity Body mass index: BMI 45.0-49.9 Qualified Code(s): E66.01 - Morbid (severe) obesity due to excess calories; Z68.42 - Body mass index (BMI) 45.0-49.9, adult (8) GERD (gastroesophageal reflux disease) Qualifiers: Esophagitis presence: esophagitis presence not specified Qualified Code(s): K21.9 - Gastro-esophageal reflux disease without esophagitis
[2018-11-21] MEDS ORDERED: SODIUM CHLORIDE/NAHCO3/KCL/PEG 4,000 ML SOLN.RECON PO ONE (17:00)
[2018-11-21] MEDS ORDERED: *HR* Promethazine 25 MG/ML VIAL IVP PRN (17:27)
[2018-11-21] MEDS ORDERED: Fenofibrate 54 MG TABLET PO SCH (21:00)
[2018-11-21] MEDS ORDERED: Loratadine 10 MG TABLET PO SCH (21:00)
[2018-11-21] MEDS ORDERED: VIENVA PO SCH (21:00)
[2018-11-22] MEDS: MetroNIDAZOLE 500 MG/100 ML 500 MG/100 ML BAG IVPB SCH ×3 (01:01→15:47)
[2018-11-22] MEDS: *HR* Heparin 5,000 UNIT/ML VIAL SQ SCH ×2 (01:01→11:00)
[2018-11-22] MEDS: 0.9 % Sodium Chloride 1,000 ML IVC SCH ×3 (04:27→15:47)
[2018-11-22 07:47] LABS: Basophils % 0.5 %; Eosinophils # 0.6 K/mcL (0.0-0.6); Eosinophils % 7.5 %; Hematocrit 35.8 % (35.3-44.9); Hemoglobin 11.5 g/dL (11.5-15.4); Lymphocytes % 26.8 %; Mean Corpuscular HGB Conc 32.1 g/dL (31.6-35.5); Mean Corpuscular Hemoglobin 28.3 pg (28.0-33.3); Mean Corpuscular Volume 88.2 fL (83.0-100.0); Mean Platelet Volume 9.6 fL (9.4-12.4); Monocytes # 1.3 K/mcL (0.0-1.3); Monocytes % 16.5 %; Neutrophils # 3.6 K/mcL (1.6-8.9); Platelet Count 334 K/mcL (140-400); Red Blood Count 4.06 M/mcL (3.82-4.97); Red Cell Distribution Width 11.8 % (11.5-14.5); Segmented Neutrophils % 47.7 %
[2018-11-22 08:04] LABS: BUN/Creatinine Ratio 8 (6-26); Blood Urea Nitrogen 6 mg/dL (6-20); Calcium 9.2 mg/dL (8.6-10.3); Carbon Dioxide 24 mEq/L (23-29); Chloride 105 mEq/L (98-107); Glucose 146 mg/dL (70-105); Osmolality,Calculated 284 (280-300); Potassium 3.6 mEq/L (3.5-5.1); Sodium 137 mEq/L (136-145); eGFR For Non-African Americans > 60 (> 60)
[2018-11-22] MEDS: Bisoprolol/HCTZ 10/6.25 TABLET PO SCH (08:34)
[2018-11-22] MEDS ORDERED: *HR* FentaNYL (PF) 100 MCG/2 ML VIAL ONE (12:00)
[2018-11-22] MEDS ORDERED: *HR* Midazolam HCl 5 MG/5 ML VIAL IVP ONE ×2 (12:00→12:04)
[2018-11-22] MEDS ORDERED: *HR* FentaNYL (PF) 100 MCG/2 ML VIAL IVP ONE (12:04)
[2018-11-22] MEDS ORDERED: Simethicone 40 MG/0.6 ML MLS IR ONE (12:04)
--- NOTE | 2018-11-22 12:04 | Pre-Sedation Evaluation ---
Pre-sedation evaluation - Pre-sedation checklist Date of procedure: 11/22/18 Recent Vitals: Last Vital Signs Temp 97.7 F 11/22/18 10:38 Pulse 76 11/22/18 10:38 Resp 15 11/22/18 10:38 BP 114/79 11/22/18 10:38 Pulse Ox 96 11/22/18 10:38 ASA Classification *see protocol: CLASS II-Mild systemic disease Plan of Care: Pt appropriate candidate for procedure/moderate/conscious sedation, Risks/benefits of procedure/sedation discussed w/ patient/family
[2018-11-22 13:05] VITALS: BP 114/77
--- NOTE | 2018-11-22 15:29 | Discharge Summary ---
- NOTES TO OUTPATIENT PROVIDER Notes to Outpatient Provider: Patient diagnosed with Crohn's disease. Has been placed on budesonide. Follow up with GI as outpatient for further management. Orders not resulted at time of discharge: Pending orders 11/22/18 12:20 Surgical Pathology [PTH] Routine Date of Encounter: 11/22/18 Time of Encounter: 15:26 - Discharge Diagnosis (1) Crohn's disease Priority: Primary Status: Acute Qualifiers: Gastrointestinal tract location: large intestine Digestive disease complication type: other complication Qualified Code(s): K50.118 - Crohn's disease of large intestine with other complication (2) Colitis Priority: Primary Status: Acute (3) Rectal mass Priority: Secondary Status: Ruled-out (4) Abdominal pain Priority: Secondary Status: Acute Qualifiers: Abdominal location: generalized Qualified Code(s): R10.84 - Generalized abdominal pain (5) Nausea Priority: Secondary Status: Acute (6) Hypertension Priority: Secondary Status: Chronic Qualifiers: Hypertension type: essential hypertension Qualified Code(s): I10 - Essential (primary) hypertension (7) Obesity Priority: Secondary Status: Chronic Qualifiers: Obesity type: due to excess calories Obesity classification: adult class 3 (BMI >= 40) Serious obesity comorbidity presence: without serious comorbidity Body mass index: BMI 45.0-49.9 Qualified Code(s): E66.01 - Morbid (severe) obesity due to excess calories; Z68.42 - Body mass index (BMI) 45.0-49.9, adult (8) GERD (gastroesophageal reflux disease) Priority: Secondary Status: Chronic Qualifiers: Esophagitis presence: esophagitis presence not specified Qualified Code(s): K21.9 - Gastro-esophageal reflux disease without esophagitis (9) DVT prophylaxis Priority: Secondary Status: Acute (10) Anxiety Priority: Secondary Status: Chronic (11) Seasonal allergies Priority: Secondary Status: Chronic (12) Thrombocythemia Priority: Secondary Status: Acute Hospital course: Ms. Rivas is a 48 year old female patient who was hospitalized here with acute colitis. She was treated with antibiotics and underwent a CT scan of abdomen and pelvis which showed possible rectal mass. As such she underwent colonoscopy today which did not show any mass but she did have Crohn's disease extending from the sigmoid colon to the cecum. Patient has been recommended budesonide daily to help treat this disease. She will follow up with GI in 4-6 weeks for follow-up on pathology results. She will also complete a short course of antibiotics to complete treatment for any infectious process. Discharge discussed with: patient - Time Spent with Patient Total time spent providing and/or coordinating discharge services: Time spent: Greater than 30 minutes (35 min) - Discharge Medications Prescriptions: New Budesonide [Uceris] 9 mg PO DAILY #30 tabdr...er Ciprofloxacin [Cipro] 500 mg PO BID #10 tablet metroNIDAZOLE [Flagyl] 500 mg PO TID #15 tablet Continued Fenofibrate Nanocrystallized [Fenofibrate] 160 mg PO HS Loratadine [Allergy Relief] 10 mg PO HS Bisoprolol/HCTZ 10.25 [Ziac 10/.25] 1 tab PO QAM Levonorgestrel-Ethin Estradiol [Vienva-28 Tablet] 1 tab PO HS hydrOXYzine HCl [Hydroxyzine HCl] 25 mg PO Q8H PRN PRN Reason: Anxiety Citalopram Hydrobromide [Citalopram HBr] 40 mg PO DAILY L.acidoph,Paracasei, B.lactis [Probiotic] 1 cap PO DAILY Lansoprazole [Prevacid] 30 mg PO HS Home Medications: Bisoprolol/HCTZ 04/15.25 [Ziac 10.25] 1 tab PO QAM 11/21/18 [History] Citalopram Hydrobromide [Citalopram HBr] 40 mg PO DAILY 11/21/18 [History] Fenofibrate Nanocrystallized [Fenofibrate] 160 mg PO HS 11/21/18 [History] L.acidoph,Paracasei, B.lactis [Probiotic] 1 cap PO DAILY 11/21/18 [History] Lansoprazole [Prevacid] 30 mg PO HS 11/21/18 [History] Levonorgestrel-Ethin Estradiol [Vienva-28 Tablet] 1 tab PO HS 11/21/18 [History] Loratadine [Allergy Relief] 10 mg PO HS 11/21/18 [History] hydrOXYzine HCl [Hydroxyzine HCl] 25 mg PO Q8H PRN 11/21/18 [History] Budesonide [Uceris] 9 mg PO DAILY #30 tabdr...er 11/22/18 [Rx] Ciprofloxacin [Cipro] 500 mg PO BID #10 tablet 11/22/18 [Rx] metroNIDAZOLE [Flagyl] 500 mg PO TID #15 tablet 11/22/18 [Rx] Allergies/Adverse Reactions: Allergy/AdvReac Type Severity Reaction Status Date / Time No Known Allergies Allergy Verified 11/21/18 11:05 Date of admission: 11/20/18 22:21 Primary care physician: Farhana Reardon CNP Consults: 11/20/18 23:13 Consult to Gastroenterology [CONS] Routine Consulting Provider: Gastroenterology [facility] Reason for Consult: failed outpt colitis, possible rectal mass Call Completed: No Discharging clinician: Jammie Rizo Anticipated date of discharge: 11/22/18 - Constitutional Vitals: Temp Pulse Resp BP Pulse Ox 97.8 F 75 16 114/77 95 11/22/18 13:04 11/22/18 13:04 11/22/18 13:04 11/22/18 13:04 11/22/18 13:04 General appearance: Present: cooperative, A&O X 3, morbidly obese, pleasant, answers questions appropriately Exam: General: Patient is alert, no acute distress, oriented x 3 Respiratory: Good respiratory effort. Normal breath sounds. No wheezing or crackles. Cardiovascular: Regular rate and rhythm. s1 and s2 normal No clicks, rubs, gallops, or murmurs. No pedal edema Abdomen: Abdomen is soft, nontender. Bowel sounds are present Musculoskeletal: Spontaneously moving all extremities Skin: warm, dry, intact. Neuro: Alert oriented x 3 normal cranial nerves, no focal deficits - Patient Status Disposition: Home, Self-Care Condition: Good Functional capacity at discharge: independent ambulation Overall status at discharge: patient is progressing back to baseline - Discharge Instructions Instructions: Crohn Disease (DC), Crohn Disease (GEN) Follow Up With: Farhana Reardon CNP [Primary Care Provider] - (In 1-2 weeks) Aron Littlejohn MD [Partnered Physician] - ( in 3- 4 weeks) - Diet and Activity Activity: increase activity as tolerated Diet: low fat, low cholesterol, low salt diet
== END 2018-11-22 18:49 | disposition home or self-care (01) ==
LOC: EMEROOARM 18:37 → 3ANU 18:37 → SUATTDRO 22:21 → 3ANU 23:55
PROVIDERS: ADMIT Internal Medicine; ATTEND Internal Medicine
PROC: ENDOCBX (2018-11-22 15:30)